=== PATIENT | female | born 1975 | race Caucasian/White ===

== ENCOUNTER 2017-11-15 13:41 | Emergency (ER) | payer OTHER ==
[2017-11-15 13:57] VITALS: BP 125/86
--- NOTE | 2017-11-15 13:58 | UC ---
UC General HPI - HPI Summary HPI Summary: pt is c/o a 2-3 day hx nasal congestion, sore throat and cough. - History of Current Complaint Hx Obtained From: Patient Hx Last Menstrual Period: 07/05/15 Onset/Duration: Gradual Onset Timing: Constant Aggravating: nothing Associated Signs & Symptoms: Negative: Fever, SOB <Shaye Smith - Last Filed: 11/15/17 13:52> <Iftikhar Croft - Last Filed: 11/15/17 14:15> - History of Current Complaint Chief Complaint: UCRespiratory Stated Complaint: SORE THROAT Time Seen by Provider: 11/15/17 13:51 - Allergy/Home Medications Allergies/Adverse Reactions: Allergies Allergy/AdvReac Type Severity Reaction Status Date / Time Sulfa (Sulfonamide Allergy Hives Verified 11/15/17 13:48 Antibiotics) Home Medications: Home Medications Methocarbamol TAB* [Robaxin 500 MG TAB*] 500 mg BEDTIME 11/15/17 [History Confirmed 11/15/17] SUMAtriptan TAB* [Imitrex TAB*] 1 tab TID PRN 11/15/17 [History Confirmed ] PMH/Surg Hx/FS Hx/Imm Hx Neurological History: Migraine - Surgical History Surgical History: Yes Surgery Procedure, Year, and Place: right thumb cyst excision 10/06/11. c- section x2. MIRENA--09/2014 - Family History Known Family History: Positive: Cardiac Disease, Hypertension - Social History Occupation: Employed Full-time Alcohol Use: Rare Substance Use Type: None Smoking Status (MU): Never Smoked Tobacco - Immunization History Vaccination Up to Date: Yes <Shaye Smith - Last Filed: 11/15/17 13:52> Review of Systems Constitutional: Negative Skin: Negative Eyes: Negative ENT: Sore Throat, Sinus Congestion Respiratory: Cough Cardiovascular: Negative Gastrointestinal: Negative Genitourinary: Negative Motor: Negative Neurovascular: Negative Musculoskeletal: Negative Neurological: Negative Psychological: Negative Is Patient Immunocompromised?: No All Other Systems Reviewed And Are Negative: Yes <Shaye Smith - Last Filed: 11/15/17 13:52> Physical Exam Triage Information Reviewed: Yes Appearance: Well-Appearing Vital Signs Reviewed: Yes Eyes: Positive: Conjunctiva Clear ENT: Positive: Pharyngeal erythema, Nasal congestion, TMs normal. Negative: Nasal drainage Neck: Positive: Supple, Nontender, No Lymphadenopathy Respiratory: Positive: Lungs clear, Normal breath sounds Cardiovascular: Positive: RRR, No Murmur Abdomen Description: Positive: Nontender, No Organomegaly, Soft Bowel Sounds: Positive: Present Musculoskeletal: Positive: ROM Intact, No Edema Neurological: Positive: Alert Psychological: Positive: Age Appropriate Behavior Skin Exam: Normal <Shaye Smith - Last Filed: 11/15/17 13:52> Vital Signs: Initial Vital Signs Temp 99.6 F 11/15/17 13:50 Pulse 81 11/15/17 13:50 Resp 16 11/15/17 13:50 BP 125/86 11/15/17 13:50 Pulse Ox 100 11/15/17 13:50 <Iftikhar Croft - Last Filed: 11/15/17 14:15> Diagnostics - Laboratory Diagnostic Studies Completed/Ordered: rapid strep=neg <Shaye Smith Last Filed: 11/15/17 13:52> Course/Dx - Course Course Of Treatment: rapid strep=neg. tx supportive - Differential Dx - Multi-Symptom Provider Diagnoses: URI. sore throat <Shaye Smith Last Filed: 11/15/17 13:52> Discharge - Sign-Out/Discharge Documenting (check all that apply): Discharge/Admit/Transfer - Billing Disposition and Condition Condition: STABLE Disposition: Home <Shaye Smith Filed: 11/15/17 13:52> - Billing Disposition and Condition Condition: STABLE Disposition: Home <Iftikhar Croft Rolando - Last Filed: 11/15/17 14:15> - Discharge Plan Condition: Stable Disposition: HOME Patient Education Materials: Pharyngitis (ED), Upper Respiratory Infection (ED) Referrals: Patrick Kahn MD [Primary Care Provider] - 7 Days Additional Instructions: Per institutional requirements, I have reviewed the chart, however, I was not consulted specifically or made aware of this patient by the above midlevel provider. I did not personally evaluate, interact with , or disposition this patient.
== END 2017-11-15 14:16 | disposition home or self-care (01) ==
LOC: UCCORT 13:41
DX: J06.9 Acute upper respiratory infection, unspecified (principal); J02.9 Acute pharyngitis, unspecified; Z88.2 Allergy status to sulfonamides
CPT/HCPCS: 87651; 99211; G0463

== ENCOUNTER 2018-07-21 13:03 | Emergency (ER) | payer OTHER ==
[2018-07-21 14:08] VITALS: BP 119/79
--- NOTE | 2018-07-21 14:32 | UC ---
Respiratory Complaint HPI - HPI Summary HPI Summary: 42 yo female with 2 day hx of myalgias/runny nose and sore throat no f/c + [facility] - History of Current Complaint Chief Complaint: UCRespiratory Stated Complaint: COUGH,ST,ACHES Time Seen by Provider: 07/21/18 14:23 Hx Obtained From: Patient Hx Last Menstrual Period: 07/05/15 Onset/Duration: Gradual Onset, Lasting Days Timing: Constant Severity Initially: Mild Severity Currently: Moderate Pain Intensity: 2 Pain Scale Used: 0-10 Numeric Character: Cough: Nonproductive Aggravating Factors: Nothing Associated Signs And Symptoms: Positive: Nasal Congestion, Sinus Discomfort - Allergies/Home Medications Allergies/Adverse Reactions: Allergies Allergy/AdvReac Type Severity Reaction Status Date / Time Sulfa (Sulfonamide Allergy Hives Verified 07/21/18 14:03 Antibiotics) PMH/Surg Hx/FS Hx/Imm Hx Previously Healthy: Yes Neurological History: Migraine - Surgical History Surgical History: Yes Surgery Procedure, Year, and Place: right thumb cyst excision 10/06/11. c- section x2. MIRENA--09/2014 - Family History Known Family History: Positive: Cardiac Disease, Hypertension - Social History Alcohol Use: None Substance Use Type: None Smoking Status (MU): Never Smoked Tobacco - Immunization History Vaccination Up to Date: Yes Review of Systems All Other Systems Reviewed And Are Negative: Yes Constitutional: Positive: Fatigue Skin: Positive: Negative Eyes: Positive: Negative ENT: Positive: Sore Throat, Nasal Discharge, Sinus Congestion, Sinus Pain/ Tenderness Respiratory: Positive: Cough Cardiovascular: Positive: Negative Gastrointestinal: Positive: Negative Genitourinary: Positive: Negative Motor: Positive: Negative Neurovascular: Positive: Negative Musculoskeletal: Positive: Myalgia Neurological: Positive: Headache Psychological: Positive: Negative Physical Exam Triage Information Reviewed: Yes Appearance: Well-Appearing, No Pain Distress, Well-Nourished Vital Signs: Initial Vital Signs Temp 97.9 F 07/21/18 14:04 Pulse 83 07/21/18 14:04 Resp 16 07/21/18 14:04 BP 119/79 07/21/18 14:04 Pulse Ox 100 07/21/18 14:04 Vital Signs Reviewed: Yes Eyes: Positive: Conjunctiva Clear ENT: Positive: Hearing grossly normal, Pharyngeal erythema, Nasal congestion, TMs normal, Uvula midline. Negative: Nasal drainage, Tonsillar swelling, Tonsillar exudate, Trismus, Muffled voice, Hoarse voice, Dental tenderness, Sinus tenderness Neck: Positive: Supple, Nontender, No Lymphadenopathy Respiratory: Positive: Lungs clear, Normal breath sounds, No respiratory distress, No accessory muscle use Cardiovascular: Positive: RRR, No Murmur Musculoskeletal: Positive: ROM Intact, No Edema Neurological: Positive: Alert Psychological Exam: Normal Respiratory Course/Dx - Course Course Of Treatment: strep (-), influenza (-) - Differential Dx/Diagnosis Provider Diagnosis: Viral URI with cough Discharge - Sign-Out/Discharge Documenting (check all that apply): Patient Departure All imaging exams completed and their final reports reviewed: No Studies - Discharge Plan Condition: Stable Disposition: HOME Patient Education Materials: Upper Respiratory Infection (ED) Referrals: Patrick Kahn MD [Primary Care Provider] - If Needed Additional Instructions: rest fluids tylenol or advil recheck in 3-5 days if not better - Billing Disposition and Condition Condition: STABLE Disposition: Home
[2018-07-21 14:52] LABS: Influenza A Molecular NEGATIVE (Negative); Influenza B Molecular NEGATIVE (Negative)
== END 2018-07-21 15:07 | disposition home or self-care (01) ==
LOC: UCCORT 13:03
DX: J06.9 Acute upper respiratory infection, unspecified (principal); R05 Cough; Z88.2 Allergy status to sulfonamides
CPT/HCPCS: 87651; 99211; G0463

== ENCOUNTER 2018-08-10 13:51 | Emergency (ER) | payer OTHER ==
[2018-08-10 14:32] VITALS: BP 101/73
--- NOTE | 2018-08-10 14:50 | UC ---
Ear Complaint HPI - HPI Summary HPI Summary: Pt Presents with c/o right ear pain that is intermittent and pt describes as a sharp radiating pain down her neck. Pt states she had a URI illness last week. - History of Current Complaint Chief Complaint: UCEar Stated Complaint: RT EAR PAIN Time Seen by Provider: 08/10/18 14:44 Hx Obtained From: Patient Hx Last Menstrual Period: 07/05/15 ?: No Onset/Duration: Gradual Onset, Lasting Days, Still Present Severity Initially: Mild Severity Currently: Mild Pain Intensity: 4 Associated Signs/Symptoms: Positive: URI Symptoms - Allergies/Home Medications Allergies/Adverse Reactions: Allergies Allergy/AdvReac Type Severity Reaction Status Date / Time Sulfa (Sulfonamide Allergy Hives Verified 08/10/18 14:27 Antibiotics) Home Medications: Home Medications Acetaminophen TAB* [Tylenol TAB*] 1,000 mg PO Q4H PRN 08/10/18 [History Confirmed 08/10/18] cloNIDine TAB* [Catapres 0.1 MG TAB*] 0.1 mg PO DAILY 08/10/18 [History Confirmed 08/10/18] PMH/Surg Hx/FS Hx/Imm Hx Previously Healthy: Yes - Surgical History Surgical History: Yes Surgery Procedure, Year, and Place: right thumb cyst excision 10/06/11. c- section x2. MIRENA--09/2014 - Family History Known Family History: Positive: Cardiac Disease, Hypertension - Social History Occupation: Employed Full-time Lives: With Family Alcohol Use: None Substance Use Type: None Smoking Status (MU): Never Smoked Tobacco Have You Smoked in the Last Year: No - Immunization History Vaccination Up to Date: Yes Review of Systems All Other Systems Reviewed And Are Negative: Yes Constitutional: Positive: Negative Skin: Positive: Negative Eyes: Positive: Negative ENT: Positive: Ear Ache - right ear Respiratory: Positive: Negative Cardiovascular: Positive: Negative Gastrointestinal: Positive: Negative Genitourinary: Positive: Negative Motor: Positive: Negative Neurovascular: Positive: Negative Musculoskeletal: Positive: Negative Neurological: Positive: Negative Psychological: Positive: Negative Is Patient Immunocompromised?: No Physical Exam Triage Information Reviewed: Yes Appearance: Well-Appearing Vital Signs: Initial Vital Signs Temp 98.4 F 08/10/18 14:28 Pulse 68 08/10/18 14:28 Resp 14 08/10/18 14:28 BP 101/73 08/10/18 14:28 Pulse Ox 100 08/10/18 14:28 Vital Signs Reviewed: Yes Eye Exam: Normal ENT: Positive: TM bulging - bilateral Dental Exam: Normal Neck exam: Normal Respiratory Exam: Normal Cardiovascular Exam: Normal Musculoskeletal Exam: Normal Neurological Exam: Normal Psychological Exam: Normal Skin Exam: Normal Ear Complaint Course/Dx - Differential Dx/Diagnosis Differential Diagnosis/HQI/PQRI: Otitis Media, URI Provider Diagnosis: Acute serous otitis media, right ear Discharge - Sign-Out/Discharge Documenting (check all that apply): Patient Departure All imaging exams completed and their final reports reviewed: No Studies - Discharge Plan Condition: Stable Disposition: HOME Prescriptions: Fexofenadine/Pseudoephedrine [Saundra-D 24 Hour Tablet] 1 each PO DAILY #10 tab.er.24h Ibuprofen TAB* [Motrin TAB* 800 MG] 800 mg PO Q8H PRN #15 tab PRN Reason: Pain Patient Education Materials: Serous Otitis Media (ED) Referrals: Patrick Kahn MD [Primary Care Provider] - If Needed - Billing Disposition and Condition Condition: STABLE Disposition: Home - Attestation Statements Provider Attestation: Per institutional requirements, I have reviewed the chart, however, I was not consulted specifically or made aware of this patient by the midlevel provider. I did not personally evaluate, interact with , or disposition this patient.
== END 2018-08-10 14:57 | disposition home or self-care (01) ==
LOC: UCCORT 13:51
DX: H65.01 Acute serous otitis media, right ear (principal); Z88.2 Allergy status to sulfonamides
CPT/HCPCS: 99212; G0463

== ENCOUNTER 2018-09-14 09:46 | Emergency (ER) | payer OTHER ==
[2018-09-14 11:01] VITALS: BP 116/76
--- NOTE | 2018-09-14 11:10 | UC ---
Eye Complaint HPI - HPI Summary HPI Summary: Pt presents with c/o left eye redness, yellow drainage drainage and tenderness X 1 day. - History of Current Complaint Chief Complaint: UCEye Stated Complaint: EYE COMPLAINT Time Seen by Provider: 09/14/18 10:48 Hx Obtained From: Patient Hx Last Menstrual Period: n/a ?: No Onset/Duration: Sudden Onset, Lasting Days, Still Present Timing: Constant Severity Initially: Mild Severity Currently: Mild Pain Intensity: 1 Character: Dull, Foreign Body Sensation Aggravating Factor(s): Nothing Alleviating Factor(s): Nothing Associated Signs And Symptoms: Positive: Drainage (Purulent) - Risk Factors Penetrating Injury Risk Factor: Negative Globe Rupture Risk Factors: Negative Acute Glaucoma Risk Factors: Negative Optic Artery Occlusion Risk Factors: Negative - Allergies/Home Medications Allergies/Adverse Reactions: Allergies Allergy/AdvReac Type Severity Reaction Status Date / Time Sulfa (Sulfonamide Allergy Hives Verified 09/14/18 10:50 Antibiotics) seasonal Allergy Eyes Uncoded 09/14/18 10:50 Itchy/Swollen/Red/Watery Home Medications: Home Medications Loratadine 10 mg PO DAILY 09/14/18 [History Confirmed 09/14/18] PMH/Surg Hx/FS Hx/Imm Hx Previously Healthy: Yes - Surgical History Surgical History: Yes Surgery Procedure, Year, and Place: right thumb cyst excision 10/06/11. c- section x2. MIRENA--09/2014 - Family History Known Family History: Positive: Cardiac Disease, Hypertension - Social History Occupation: Employed Full-time Lives: With Family Alcohol Use: None Substance Use Type: None Smoking Status (MU): Never Smoked Tobacco Have You Smoked in the Last Year: No - Immunization History Vaccination Up to Date: Yes Review of Systems All Other Systems Reviewed And Are Negative: Yes Constitutional: Positive: Negative Skin: Positive: Negative Eyes: Positive: Drainage, Eye Redness ENT: Positive: Negative Respiratory: Positive: Negative Cardiovascular: Positive: Negative Gastrointestinal: Positive: Negative Genitourinary: Positive: Negative Motor: Positive: Negative Neurovascular: Positive: Negative Musculoskeletal: Positive: Negative Neurological: Positive: Negative Psychological: Positive: Negative Is Patient Immunocompromised?: No Physical Exam Triage Information Reviewed: Yes Appearance: Well-Appearing Vital Signs: Initial Vital Signs Temp 97.9 F 09/14/18 10:53 Pulse 69 09/14/18 10:53 Resp 18 09/14/18 10:53 BP 116/76 09/14/18 10:53 Pulse Ox 100 09/14/18 10:53 Vital Signs Reviewed: Yes Eyes: Positive: Conjunctiva Inflamed, Discharge ENT Exam: Normal Dental Exam: Normal Neck exam: Normal Respiratory Exam: Normal Respiratory: Positive: No respiratory distress Musculoskeletal Exam: Normal Neurological Exam: Normal Psychological Exam: Normal Skin Exam: Normal Eye Complaint Course/Dx - Differential Dx/Diagnosis Differential Diagnosis/HQI/PQRI: Conjunctivitis, Corneal Abrasion Provider Diagnosis: Conjunctivitis, left eye Discharge - Sign-Out/Discharge Documenting (check all that apply): Patient Departure All imaging exams completed and their final reports reviewed: No Studies - Discharge Plan Condition: Stable Disposition: HOME Prescriptions: Ofloxacin 0.3% (Eye Drop) [Ocuflox OPTH 0.3% (Eye Drop)] 2 drop BOTH EYES Q6H 7 Days #1 btl Patient Education Materials: Conjunctivitis (ED) Referrals: Patrick Kahn MD [Primary Care Provider] - If Needed - Billing Disposition and Condition Condition: STABLE Disposition: Home - Attestation Statements Provider Attestation: I was available for consult. This patient was seen by the JESSICA. The patient was not presented to, seen by, or examined by me. -Karla
== END 2018-09-14 11:27 | disposition home or self-care (01) ==
LOC: UCCORT 09:46
DX: H10.9 Unspecified conjunctivitis (principal); Z88.2 Allergy status to sulfonamides; Z91.09 Other allergy status, other than to drugs and biological substances
CPT/HCPCS: 99212; G0463

== ENCOUNTER 2018-09-20 14:26 | Emergency (ER) | payer OTHER ==
[2018-09-20 14:55] VITALS: BP 116/88
--- NOTE | 2018-09-20 15:05 | UC ---
Neck Pain HPI - HPI Summary HPI Summary: pain along the back of her neck since this past Wednesday with a popping/ cracking noise with movement. no hx injury or over used. no numb/weak or tingling to arms. no CP or sob. hx cervical spinal stenosis. on mm relaxer and took 400mg Motrin this am with no relief. it is worsening her migraines since onset. - History of Current Complaint Stated Complaint: NECK PAIN Time Seen by Provider: 09/20/18 14:50 Hx Obtained From: Patient Hx Last Menstrual Period: mirena Pain Intensity: 8 Aggravating Factors: Movement Alleviating Factors: Other: - standing Associated Signs & Symptoms: Negative: Weakness, Paresthesia - Risk Factors Meningitis Risk Factors: Negative - Allergies/Home Medications Allergies/Adverse Reactions: Allergies Allergy/AdvReac Type Severity Reaction Status Date / Time Sulfa (Sulfonamide Allergy Hives Verified 09/20/18 14:49 Antibiotics) seasonal Allergy Eyes Uncoded 09/20/18 14:49 Itchy/Swollen/Red/Watery Home Medications: Home Medications Ibuprofen TAB* [Motrin TAB* 400 MG] 400 mg PO Q6H PRN 09/20/18 [History Confirmed 09/20/18] ZOLMitriptan [Zolmitriptan Odt] 2.5 mg PO Q4H PRN 09/20/18 [History Confirmed ] PMH/Surg Hx/FS Hx/Imm Hx - Additional Past Medical History Additional PMH: OA, spinal stenosis Neurological History: Migraine - Surgical History Surgical History: Yes Surgery Procedure, Year, and Place: right thumb cyst excision 10/06/11. c- section x2. ARIELLA--09/2014 - Family History Known Family History: Positive: Cardiac Disease, Hypertension - Social History Occupation: Employed Full-time Alcohol Use: None Substance Use Type: None Smoking Status (MU): Never Smoked Tobacco Have You Smoked in the Last Year: No - Immunization History Vaccination Up to Date: Yes Review of Systems All Other Systems Reviewed And Are Negative: Yes Constitutional: Negative: Fever Respiratory: Negative: Shortness Of Breath, Cough Cardiovascular: Negative: Palpitations, Chest Pain Musculoskeletal: Negative: Decreased ROM Neurological: Positive: Headache - migraines. Negative: Weakness, Paresthesia, Numbness Physical Exam Triage Information Reviewed: Yes Appearance: Well-Appearing Vital Signs: Initial Vital Signs Temp 98.9 F 09/20/18 14:51 Pulse 70 09/20/18 14:51 Resp 15 09/20/18 14:51 BP 116/88 09/20/18 14:51 Pulse Ox 100 09/20/18 14:51 Vital Signs Reviewed: Yes Eyes: Positive: Conjunctiva Clear ENT: Positive: Normal ENT inspection Neck: Positive: Supple, No Lymphadenopathy, Other: - c-spine: no deformity, non tender but active rom causes the posterior neck pain and a pop is noted. ROM is intact. Respiratory: Positive: Lungs clear, Normal breath sounds, No respiratory distress Cardiovascular: Positive: RRR, No Murmur Abdomen Description: Positive: Nontender Musculoskeletal: Positive: Other: - Thoracic and lumbar spine: non tender and rom is intact. 5/5 strength, 2+ reflexes and sensation intact x4. Neurological: Positive: Alert Psychological: Positive: Age Appropriate Behavior Skin Exam: Normal Skin: Negative: Rashes Diagnostics - Radiology No standard instances Radiology Interpretation Completed By: Radiologist - IMPRESSION: MILD TO MODERATE DEGENERATIVE DISC DISEASE AT THE C5-C6 AND C6-C7 LEVELS. Neck Pain Course/Dx - Differential Dx/Diagnosis Differential Dx/HQI/PQRI: Other - no concern for infection Provider Diagnosis: Neck pain Discharge - Sign-Out/Discharge Documenting (check all that apply): Patient Departure All imaging exams completed and their final reports reviewed: Yes - Discharge Plan Condition: Stable Disposition: HOME Prescriptions: Naproxen [Naprosyn 500 mg tab] 500 mg PO BID 5 Days #10 tablet Patient Education Materials: Neck Pain (ED) Referrals: Patrick Kahn MD [Primary Care Provider] - 6 Days Additional Instructions: CONTINUE THE MUSCLE RELAXERS - Billing Disposition and Condition Condition: STABLE Disposition: Home
[2018-09-20] MEDS ORDERED: Ketorolac INJ* 60 MG/2 ML VIAL IM ONE (15:09)
== END 2018-09-20 16:42 | disposition home or self-care (01) ==
LOC: UCCORT 14:26
DX: M50.323 Other cervical disc degeneration at C6-C7 level (principal); G43.909 Migraine, unspecified, not intractable, without status migrainosus; M19.90 Unspecified osteoarthritis, unspecified site; M48.00 Spinal stenosis, site unspecified; Z88.2 Allergy status to sulfonamides
CPT/HCPCS: 72050; 96372; 99212; G0463; J1885

== ENCOUNTER 2019-02-01 10:20 | Emergency (ER) | payer OTHER ==
[2019-02-01 11:35] VITALS: BP 127/83
--- NOTE | 2019-02-01 12:06 | UC ---
UC General HPI - HPI Summary HPI Summary: per triage, per triage, Sinus pain and pressure, post nasal drip, coughing, sore throat and bilateral ear pain since Wednesday. Worsening. [ End ]. pt states she can't get anything in or out of her nose. hx sinus infection and this feels similar. - History of Current Complaint Chief Complaint: UCGeneralIllness Stated Complaint: SINUSES,THROAT Time Seen by Provider: 02/01/19 12:00 Hx Obtained From: Patient Hx Last Menstrual Period: mirena Onset/Duration: Gradual Onset Timing: Constant Pain Intensity: 3 Associated Signs & Symptoms: Positive: Headache. Negative: Fever - Allergy/Home Medications Allergies/Adverse Reactions: Allergies Allergy/AdvReac Type Severity Reaction Status Date / Time Sulfa (Sulfonamide Allergy Hives Verified 02/01/19 11:32 Antibiotics) seasonal Allergy Eyes Uncoded 02/01/19 11:32 Itchy/Swollen/Red/Watery PMH/Surg Hx/FS Hx/Imm Hx - Additional Past Medical History Additional PMH: allergies, spinal stenosis Neurological History: Migraine - Surgical History Surgical History: Yes Surgery Procedure, Year, and Place: right thumb cyst excision 10/06/11. c- section x2. MIRENA--09/2014 - Family History Known Family History: Positive: Cardiac Disease, Hypertension - Social History Occupation: Employed Full-time Alcohol Use: Occasionally Substance Use Type: None Smoking Status (MU): Never Smoked Tobacco Have You Smoked in the Last Year: No - Immunization History Vaccination Up to Date: Yes Review of Systems All Other Systems Reviewed And Are Negative: No Constitutional: Negative: Fever Skin: Negative: Rash Eyes: Negative: Drainage, Eye Redness ENT: Positive: Sore Throat, Ear Ache, Sinus Congestion, Sinus Pain/Tenderness Respiratory: Positive: Cough. Negative: Shortness Of Breath Physical Exam Triage Information Reviewed: Yes Appearance: Well-Appearing Vital Signs: Initial Vital Signs Temp 98.7 F 02/01/19 11:30 Pulse 82 02/01/19 11:30 Resp 15 02/01/19 11:30 BP 127/83 02/01/19 11:30 Pulse Ox 100 02/01/19 11:30 Vital Signs Reviewed: Yes Eyes: Positive: Conjunctiva Clear ENT: Positive: Pharynx normal, Nasal congestion, TMs normal, Sinus tenderness, Other - Nose is very red and memebranes are engorged.. Negative: Nasal drainage Neck: Positive: Supple, Nontender, No Lymphadenopathy Respiratory: Positive: Lungs clear, Normal breath sounds, No respiratory distress Cardiovascular: Positive: RRR, No Murmur Neurological: Positive: Alert Psychological: Positive: Age Appropriate Behavior Skin Exam: Normal Course/Dx - Differential Dx - Multi-Symptom Differential Diagnoses: Other - pt to trial a decongestant. if not improving she is to add the augmentin. she will add the augmentin sooner if worsening. - Diagnoses Provider Diagnosis: Sinusitis Discharge ED - Sign-Out/Discharge Documenting (check all that apply): Patient Departure All imaging exams completed and their final reports reviewed: No Studies - Discharge Plan Condition: Stable Disposition: HOME Prescriptions: Amoxicillin/Clavulanate TAB* [Augmentin TAB 875*] 875 mg PO BID 10 Days #20 tab Patient Education Materials: Sinusitis (ED) Referrals: Patrick Strong MD [Primary Care Provider] - Additional Instructions: FOLLOW UP WITH DR STRONG IF NOT BETTER IN 7-10 DAYS OR SOONER IF WORSE. TAKE A DECONGESTANT DAILY PER LABEL. IF NOT IMPROVING WITHIN THE NEXT 3 DAYS, START THE AUGMENTIN. START THE AUGMENTIN SOONER IF WORSE. - Billing Disposition and Condition Condition: STABLE Disposition: Home
== END 2019-02-01 12:13 | disposition home or self-care (01) ==
LOC: UCCORT 10:20
DX: J32.9 Chronic sinusitis, unspecified (principal); H92.03 Otalgia, bilateral; Z88.2 Allergy status to sulfonamides
CPT/HCPCS: 99212; G0463

== ENCOUNTER 2019-02-23 14:28 | Emergency (ER) | payer OTHER ==
[2019-02-23 14:46] VITALS: BP 133/78
--- NOTE | 2019-02-23 15:03 | UC ---
Lower Extremity/Ankle HPI - HPI Summary HPI Summary: 43 yo female hit mid right cao on a dresser drawer about one week ago still causing moderate to severe pain Pain worse at rest no change with NSAIDS or elevation - History of Current Complaint Chief Complaint: UCLowerExtremity Stated Complaint: R LEG PAIN/INJ Time Seen by Provider: 02/23/19 14:43 Hx Obtained From: Patient Hx Last Menstrual Period: mirena Onset/Duration: Sudden Onset, Lasting Days Severity Currently: Moderate Pain Intensity: 8 Pain Scale Used: 0-10 Numeric Aggravating Factor(s): Standing, Ambulation Alleviating Factor(s): Rest Able to Bear Weight: Yes Legs: 1 - ecchymosis 2 - ecchymosis - Allergies/Home Medications Allergies/Adverse Reactions: Allergies Allergy/AdvReac Type Severity Reaction Status Date / Time Sulfa (Sulfonamide Allergy Hives Verified 02/23/19 14:43 Antibiotics) seasonal Allergy Eyes Uncoded 02/23/19 14:43 Itchy/Swollen/Red/Watery PMH/Surg Hx/FS Hx/Imm Hx Previously Healthy: Yes - Surgical History Surgical History: Yes Surgery Procedure, Year, and Place: right thumb cyst excision 10/06/11. c- section x2. ARIELLA--09/2014 - Family History Known Family History: Positive: Cardiac Disease, Hypertension - Social History Alcohol Use: Occasionally Substance Use Type: None Smoking Status (MU): Never Smoked Tobacco Have You Smoked in the Last Year: No - Immunization History Vaccination Up to Date: Yes Review of Systems All Other Systems Reviewed And Are Negative: Yes Constitutional: Positive: Negative Skin: Positive: Bruising Eyes: Positive: Negative ENT: Positive: Negative Respiratory: Positive: Negative Cardiovascular: Positive: Negative Gastrointestinal: Positive: Negative Genitourinary: Positive: Negative Motor: Positive: Negative Neurovascular: Positive: Negative Musculoskeletal: Positive: Other: - right cao hematoma Neurological: Positive: Negative Psychological: Positive: Negative Physical Exam Triage Information Reviewed: Yes Appearance: Well-Appearing, No Pain Distress, Well-Nourished Vital Signs: Initial Vital Signs Temp 98.0 F 02/23/19 14:44 Pulse 81 02/23/19 14:44 Resp 16 02/23/19 14:44 BP 133/78 02/23/19 14:44 Pulse Ox 100 02/23/19 14:44 Vital Signs Reviewed: Yes Eyes: Positive: Conjunctiva Clear ENT: Positive: Hearing grossly normal. Negative: Nasal congestion, Nasal drainage, Trismus, Muffled voice, Hoarse voice Neck: Positive: Supple, Nontender Respiratory: Positive: Lungs clear, Normal breath sounds, No respiratory distress, No accessory muscle use Cardiovascular: Positive: RRR, No Murmur Musculoskeletal: Positive: ROM Intact Neurological: Positive: Alert, Other: - see image Psychological Exam: Normal Skin Exam: Normal - Additional Comments distal n/v intact able to dorsi and plantar flex right foot normally normal gait no muscle firmness no signs of vaso motor issues no evidence of infection pain out of proportion to injury Procedures - Sedation Patient Received Moderate/Deep Sedation with Procedure: No Diagnostics - Radiology No standard instances Radiology Interpretation Completed By: Radiologist Summary of Radiographic Findings: right tib/fib : no fx Lower Extremity Course/Dx - Differential Dx/Diagnosis Provider Diagnosis: Injury of right cao Discharge ED - Sign-Out/Discharge Documenting (check all that apply): Patient Departure All imaging exams completed and their final reports reviewed: Yes - Discharge Plan Condition: Stable Disposition: HOME Prescriptions: Meloxicam [Mobic] 15 mg PO DAILY PRN #10 tablet PRN Reason: Pain - Severe Patient Education Materials: Hematoma (ED) Forms: *Work Release Referrals: Patrick Kahn MD [Primary Care Provider] - Gareth Maynard MD [Medical Doctor] - As Soon As Possible Additional Instructions: elevate ice tylenol I suggest orthopedic follow up - Billing Disposition and Condition Condition: STABLE Disposition: Home
== END 2019-02-23 15:39 | disposition home or self-care (01) ==
LOC: UCCORT 14:28
DX: S89.91XA Unspecified injury of right lower leg, initial encounter (principal); Z88.2 Allergy status to sulfonamides; Z91.09 Other allergy status, other than to drugs and biological substances; W22.8XXA Striking against or struck by other objects, initial encounter; Y92.9 Unspecified place or not applicable
CPT/HCPCS: 99212; G0463

== ENCOUNTER 2019-04-27 16:57 | Emergency (ER) | payer OTHER ==
--- OUTSIDE RECORDS SUMMARY | 2019-04-27 17:19 | XMS REPORT | Continuity of Care Document ---
:1975 External Reference #:[id number] Author Name Gareth Maynard MD (transmitted by agent of provider Samuel Quigley) Address [facility] [place] [address] Care Team Providers Name Role Phone [facility] - Care Team Information [facility] Patrick Kahn MD - Emergency Care Team Information [facility] [phone] Medicine Problems Active Problems Provider Date Migraine Monique Henderson M.D. Onset: 01/22/2015 Social History Type Date Description Comments Sex Unknown Tobacco Use Start: Unknown Never Smoked Cigarettes Smoking Status Reviewed: 03/10/19 Never Smoked Cigarettes ETOH Use Rarely consumes alcohol Tobacco Use Start: Unknown Patient has never smoked Recreational Drug Use Denies Drug Use Exercise Type/Frequency Exercises sporadically Allergies, Adverse Reactions, Alerts Active Allergies Reaction Severity Comments Date Sulfa Antibiotics 07/13/2012 Metoclopramide [facility] as [facility] 04/30/2017 Medications Active Medications SIG Qnty Indications Ordering Provider Date Compazine 1 by mouth every Unknown 10mg Tablets 6 hours as needed nausea Methocarbamol 1 by mouth at hs Unknown 500mg Tablets Melatonin take 2 by mouth Unknown 3mg Capsules each night Topiramate take 1/2 by mouth Unknown 100mg Tablets at bedtime Multivitamin Adults take 1 by mouth Unknown each day Tablets Zolmitriptan 1 by mouth twice 9tabs Unknown 5mg Tablets a day as needed migraine max 2 days/wk Fluoxetine HCL 1 by mouth every Unknown 20mg day Capsules Vitamin B12 TR 1 by mouth every Unknown 1000mcg day Tablets ER Immunizations Description No Information Available Vital Signs Date Vital Result Comment 03/10/2019 11:04am Height 66 inches 5'6" Weight 140.00 lb Heart Rate 77 /min BP Systolic Sitting 116 mmHg BP Diastolic Sitting 67 mmHg Respiratory Rate 16 /min Pain Level 0 O2 % BldC Oximetry 91 % BMI (Body Mass Index) 22.6 kg/m2 04/30/2017 1:46pm Height 66 inches 5'6" Weight 140.00 lb Heart Rate 76 /min BP Systolic Sitting 104 mmHg BP Diastolic Sitting 76 mmHg Respiratory Rate 16 /min BMI (Body Mass Index) 22.6 kg/m2 Results Description No Information Available Procedures Description No Information Available Medical Devices Description No Information Available Encounters Type Date Location Provider Dx Diagnosis Office Visit 02/24/2019 [facility] Gareth Maynard, S80.11xA Contusion of 11:30a at [place] right lower leg, initial encounter Assessments Date Code Description Provider 03/10/2019 S80.11xD Contusion of right lower leg, subsequent Gareth Maynard MD encounter 02/24/2019 S80.11xA Contusion of right lower leg, initial Gareth Maynard MD encounter Plan of Treatment 03/10/2019 - Gareth Maynard [id number] Contusion of right lower leg, subsequent encounterComments:home exercises sheetsFollow up:Follow up: As needed Functional Status Description No Information Available Mental Status Description No Information Available Referrals Description No Information Available
[2019-04-27 17:30] VITALS: BP 114/73
--- NOTE | 2019-04-27 18:13 | UC ---
Lower Extremity/Ankle HPI - HPI Summary HPI Summary: Patient is a 43-year-old female presenting with left ankle pain times one hour after she states she missed a step going down the stairs at home. States her foot rolled inward. States she is able to put some weight on it but is very painful. Denies numbness and tingling. Denies bruising. Notes some swelling of lateral ankle. Denies foot pain. Denies taking anything for pain. - History of Current Complaint Chief Complaint: UCLowerExtremity Stated Complaint: LT ANKLE INJURY Hx Obtained From: Patient Hx Last Menstrual Period: mirena iud. does not have reg periods. Onset/Duration: Sudden Onset Severity Currently: Moderate Pain Intensity: 6 Pain Scale Used: 0-10 Numeric - Allergies/Home Medications Allergies/Adverse Reactions: Allergies Allergy/AdvReac Type Severity Reaction Status Date / Time Sulfa (Sulfonamide Allergy Hives Verified 04/27/19 17:21 Antibiotics) seasonal Allergy Eyes Uncoded 04/27/19 17:21 Itchy/Swollen/Red/Watery Home Medications: Home Medications Levonorgestrel (Iud) [Mirena IUD] 20 mcg IU 04/27/19 [History] Vitamin B Complex CAP* [B Complex CAP*] 1 cap PO DAILY 04/27/19 [History Confirmed 04/27/19] PMH/Surg Hx/FS Hx/Imm Hx Previously Healthy: Yes - Surgical History Surgical History: Yes Surgery Procedure, Year, and Place: right thumb cyst excision 10/06/11. c- section x2. MIRENA--09/2014 - Family History Known Family History: Positive: Cardiac Disease, Hypertension, Non-Contributory - Social History Occupation: Employed Full-time Lives: With Family Alcohol Use: Rare Substance Use Type: None Smoking Status (MU): Never Smoked Tobacco Have You Smoked in the Last Year: No - Immunization History Vaccination Up to Date: Yes Review of Systems All Other Systems Reviewed And Are Negative: Yes Constitutional: Positive: Negative Skin: Negative: Bruising Respiratory: Positive: Negative Cardiovascular: Positive: Negative Neurovascular: Positive: Negative. Negative: Decreased Sensation Musculoskeletal: Positive: Arthralgia - Left ankle, Edema - Left lateral ankle. Negative: Decreased ROM Neurological: Negative: Paresthesia, Numbness Physical Exam Triage Information Reviewed: Yes Appearance: Well-Appearing, No Pain Distress, Well-Nourished Vital Signs: Initial Vital Signs Temp 99.2 F 04/27/19 17:23 Pulse 76 04/27/19 17:23 Resp 16 04/27/19 17:23 BP 114/73 04/27/19 17:23 Pulse Ox 98 04/27/19 17:23 Vital Signs Reviewed: Yes Eyes: Positive: Conjunctiva Clear ENT: Positive: Hearing grossly normal Neck: Positive: Supple Respiratory: Positive: No respiratory distress Cardiovascular: Positive: Pulses Normal - Strong pedal pulses bilaterally, Brisk Capillary Refill - <2 sec Musculoskeletal: Positive: Strength Intact, ROM Intact, No Edema, Other: - Pain with inversion of left foot. Tenderness to palpation of left lateral ankle. Observed patient bear weight on left ankle and foot without significant pain distress. Neurological Exam: Other - Sensation grossly intact Neurological: Positive: Alert Psychological: Positive: Age Appropriate Behavior Skin Exam: Normal - no erythema or ecchymosis Diagnostics - Radiology L ankle Radiology Interpretation Completed By: Radiologist Summary of Radiographic Findings: REPORT AND IMPRESSION: #. Chronic appearing small wafer morphology bone fragment along the dorsal margin of the navicula reference the lateral view. New finding compared with the 2014 exam. #. No evidence for acute fracture about the ankle. #. Normal articular alignment. Preserved joint spaces. #. Unremarkable soft tissue contours. Lower Extremity Course/Dx - Course Course Of Treatment: Radiograph findings discussed with radiologist Dr. Paz who explained that bone fragment is suggestive of a chronic finding and would not consider acute finding unless point tenderness. Patient without point tenderness in that location and diagnosed with sprained ankle. Instructed to continue with RICE and use of arianna wrap and ankle splint until pain resolves. Instructed to follow up with ortho if pain persists. Patient voiced understanding and agreed with treatment plan. - Differential Dx/Diagnosis Provider Diagnosis: Left ankle sprain Discharge ED - Sign-Out/Discharge Documenting (check all that apply): Patient Departure All imaging exams completed and their final reports reviewed: Yes - Discharge Plan Condition: Stable Disposition: HOME Patient Education Materials: Ankle Sprain (ED) Referrals: Patrick Kahn MD [Primary Care Provider] - If Needed [facility] [Outside] - If Needed Additional Instructions: As discussed, the xrays of the ankle did not show any fractures. Rest, ice, elevate, and use the ankle splint to help relieve pain. You may also use over the counter pain medications as directed for pain relief. If pain does not resolve, follow up with your PCP or orthopedics as listed below. - Billing Disposition and Condition Condition: STABLE Disposition: Home - Attestation Statements Provider Attestation: I was available for consult. This patient was seen by the JESSICA. The patient was not presented to, seen by, or examined by me. -Karla
== END 2019-04-27 18:48 | disposition home or self-care (01) ==
LOC: UCCORT 16:57
DX: S93.402A Sprain of unspecified ligament of left ankle, initial encounter (principal); Z88.2 Allergy status to sulfonamides; Z91.09 Other allergy status, other than to drugs and biological substances; X50.3XXA Overexertion from repetitive movements, initial encounter; Y92.009 Unspecified place in unspecified non-institutional (private) residence as the place of occurrence of the external cause
CPT/HCPCS: 99213; G0463

== ENCOUNTER 2019-06-01 11:59 | Emergency (ER) | payer OTHER ==
[2019-06-01 12:29] VITALS: BP 117/81
--- NOTE | 2019-06-01 12:37 | UC ---
FLU HPI - HPI Summary HPI Summary: Patient with 43-year-old female with a history of migraines. 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 Patient states yesterday she suddenly started to feel very sick. Patient states she's been nauseous but no vomiting. Patient states she's been hot and cold flashes with tactile temperatures. Patient reports she has a history of migraines and she's had an ongoing headache. Patient has taken her baseline migraine medication with little improvement. Patient concerned she may have the flu. No sick contacts at home. Patient didn't get the flu shot pressure. Patient states she does have some nasal congestion postnasal drip. Patient has not taken any [id number] medications other than Motrin and Tylenol. Patient's medications as entered in the EMR by triage are reviewed this visit. - History of Current Complaint Chief Complaint: UCGeneralIllness Stated Complaint: FLU LIKE SYMP Time Seen by Provider: 06/01/19 12:37 Hx Obtained From: Patient Hx Last Menstrual Period: mirena ?: No Onset/Duration: Sudden Onset Severity Currently: Moderate Severity Initially: Moderate Pain Intensity: 6 - Allergy/Home Medications Allergies/Adverse Reactions: Allergies Allergy/AdvReac Type Severity Reaction Status Date / Time Sulfa (Sulfonamide Allergy Hives Verified 06/01/19 12:26 Antibiotics) seasonal Allergy Eyes Uncoded 06/01/19 12:26 Itchy/Swollen/Red/Watery PMH/Surg Hx/FS Hx/Imm Hx Previously Healthy: Yes - Surgical History Surgical History: Yes Surgery Procedure, Year, and Place: right thumb cyst excision 10/06/11. c- section x2. MIRENA--09/2014 - Family History Known Family History: Positive: Cardiac Disease, Hypertension, Non-Contributory - Social History Occupation: Employed Full-time Lives: With Family Alcohol Use: Rare Substance Use Type: None Smoking Status (MU): Never Smoked Tobacco Have You Smoked in the Last Year: No - Immunization History Vaccination Up to Date: Yes Review of Systems All Other Systems Reviewed And Are Negative: Yes Constitutional: Positive: Fever - tactile, hot flashes Eyes: Positive: Negative ENT: Positive: Sore Throat, Ear Ache, Nasal Discharge, Sinus Congestion, Sinus Pain/Tenderness Respiratory: Positive: Cough Cardiovascular: Positive: Negative Musculoskeletal: Positive: Myalgia Physical Exam - Summary Physical Exam Summary: Vital Signs Reviewed: Yes A+Ox3, tired appearing,congested Eyes: Conjunctiva Clear, BRE. EOM intact and full ENT: Hearing grossly normal TM x 2 visualized,scant fluid right ear, turbiantes inflammed and boggy, mmoist, uvula midline, no exudate, no erythema Neck: Positive: Supple Respiratory: Positive: No respiratory distress, No accessory muscle use + CTA throughout no w/r, mild intermittent cough Cardiovascular: RRR nl s1, s2 no m/r CBT <2 sec abd soft + BS nt/nd no guarding, no distension Musculoskeletal Exam: BUSTAMANTE x 4 without difficulty Strength Intact, ROM Intact Neurological: Positive: Alert, + sensation throughout Psychological: Positive: Normal Response To examiner Skin: Positive: no rash, no ecchymosis Triage Information Reviewed: Yes Vital Signs: Initial Vital Signs Temp 98.3 F 06/01/19 12:24 Pulse 101 06/01/19 12:24 Resp 15 06/01/19 12:24 BP 117/81 06/01/19 12:24 Pulse Ox 98 06/01/19 12:24 Re-Evaluation - Re-Evaluation First Eval Comment: Patient states she felt better after Zofran. Patient I am ordered. We 'll discharge home with Tamiflu as well as Zofran. We'll also send home with note for work tomorrow. Return precautions discussed. Patient comfortable in agreement with plan Flu Course/Dx - Course Course Of Treatment: Patient presents to urgent care with flulike symptoms including sudden onset of fevers and body aches chills nausea. Patient states she's been taking Motrin and Tylenol as well as her migraine medication with little improvement. On exam vital signs are stable. Patient does appear tired and congested. Patient' s without any focal exam finding of concern. Patient influenza was negative. We'll give Zofran and reassessed. Discussed with patient supportive care. We' ll likely start patient on Tamiflu she has had multiple exposures and onset of symptoms. Patient and family plan. We'll reassess following Zofran - Differential Dx/Diagnosis Provider Diagnosis: Influenza-like illness, Nausea Discharge ED - Sign-Out/Discharge Documenting (check all that apply): Patient Departure All imaging exams completed and their final reports reviewed: No Studies - Discharge Plan Condition: Stable Disposition: HOME Prescriptions: Ondansetron ODT TAB* [Zofran 4 MG Odt TAB*] 4 mg PO Q6HR #10 tab.odt Oseltamivir CAP* [Tamiflu CAP*] 75 mg PO BID #10 cap Patient Education Materials: Viral Syndrome (ED) Forms: *Work Release Referrals: Patrick Kahn MD [Primary Care Provider] - Additional Instructions: - Stay well hydrated. Drink plenty of non-alcoholic, non-caffinated beverages. - Alternate ibuprofen (Advil, Motrin) 600mg and Tylenol every 3 hours for pain or fever. Take with food. Do NOT take for more than 4-5 days. - These infections are spread by secretions - do NOT share eating or drinking utensils - clean items you share with other people such as cell phones, computer mouse, TV remote, computer tablets,etc. Once you start to feel better, change your toothbrush and your pillowcase. - Take Tamiflu twice daily as prescribed - get plenty of restful sleep - humidify the air in the room where you sleep - boil water, run a hot steam shower, vaporizer, cups of water by heat register - okay to take over the counter decongestant and cough medication - okay to zofran as needed for nausea - contact your doctor or return with questions or concerns - Billing Disposition and Condition Condition: STABLE Disposition: Home
[2019-06-01 12:47] LABS: Influenza A Molecular NEGATIVE (Negative); Influenza B Molecular NEGATIVE (Negative)
[2019-06-01] MEDS: Ondansetron ODT TAB* 4 MG SL ONE (13:03)
== END 2019-06-01 13:34 | disposition home or self-care (01) ==
LOC: UCCORT 11:59
DX: R09.81 Nasal congestion (principal); R11.0 Nausea; J02.9 Acute pharyngitis, unspecified; R05 Cough; R50.9 Fever, unspecified; G43.909 Migraine, unspecified, not intractable, without status migrainosus; Z88.2 Allergy status to sulfonamides; Z91.09 Other allergy status, other than to drugs and biological substances
CPT/HCPCS: 99212; A9270-GY; G0463

== ENCOUNTER 2019-07-04 10:07 | Emergency (ER) | payer OTHER ==
[2019-07-04 11:08] VITALS: BP 113/73
--- NOTE | 2019-07-04 11:08 | UC ---
FLU HPI - HPI Summary HPI Summary: 43 yo female presents with URI symptoms. She tells me that over the last 4-5 days she has had a dry cough with sinus pain/pressure/congestion. She has been taking mucinex and tylenol cold with little relief. She does feel a little short of breath at times. Denies fever, chills, sore throat, chest pain, rash, abdominal pain, n/v. - History of Current Complaint Chief Complaint: UCRespiratory Stated Complaint: COUGH/ST/CONGESTION Time Seen by Provider: 07/04/19 11:08 Hx Obtained From: Patient Hx Last Menstrual Period: mirena Onset/Duration: Gradual Onset Severity Currently: Mild Severity Initially: Mild Pain Intensity: 4 Pain Scale Used: 0-10 Numeric - Allergy/Home Medications Allergies/Adverse Reactions: Allergies Allergy/AdvReac Type Severity Reaction Status Date / Time Sulfa (Sulfonamide Allergy Hives Verified 07/04/19 11:05 Antibiotics) seasonal Allergy Eyes Uncoded 07/04/19 11:05 Itchy/Swollen/Red/Watery PMH/Surg Hx/FS Hx/Imm Hx Neurological History: Migraine - Surgical History Surgical History: Yes Surgery Procedure, Year, and Place: right thumb cyst excision 10/06/11. c- section x2. MIRENA--09/2014 - Family History Known Family History: Positive: Cardiac Disease, Hypertension, Non-Contributory - Social History Occupation: Employed Full-time Lives: With Family Alcohol Use: Rare Substance Use Type: None Smoking Status (MU): Never Smoked Tobacco Have You Smoked in the Last Year: No - Immunization History Vaccination Up to Date: Yes Review of Systems All Other Systems Reviewed And Are Negative: No Constitutional: Positive: Negative Skin: Positive: Negative Eyes: Positive: Negative ENT: Positive: Nasal Discharge, Sinus Congestion, Sinus Pain/Tenderness Respiratory: Positive: Shortness Of Breath, Cough Cardiovascular: Positive: Negative Gastrointestinal: Positive: Negative Neurological/Mental Status: Positive: Negative Psychological: Positive: Negative Physical Exam - Summary Physical Exam Summary: GENERAL: NAD. WDWN. No pain distress. SKIN: No rashes, sores, lesions, or open wounds. HEENT: Head: AT/NC Eyes: EOM intact. Conjunctiva clear without inflammation or discharge. Ears: Hearing grossly normal. TMs intact, no bulging, erythema, or edema. Nose: Nasal mucosa mildly swollen and erythematous with yellow/ clear discharge. TTP maxillary and frontal sinus. Positive post nasal drip Throat: Posterior oropharynx without exudates, erythema, or tonsillar enlargement. Uvula midline. NECK: Supple. Mildly TTP shotty anterior cervical LAD CHEST: Moderate wheezing left lung. No accessory muscle use. Breathing comfortably and in no distress. CV: RRR. Pulses intact. NEURO: Alert. PSYCH: Age appropriate behavior. Triage Information Reviewed: Yes Vital Signs: Initial Vital Signs Temp 98.1 F 07/04/19 11:02 Pulse 87 07/04/19 11:02 Resp 16 07/04/19 11:02 BP 113/73 07/04/19 11:02 Pulse Ox 100 07/04/19 11:02 Laboratory Tests 07/04/19 11:15 Influenza A (Rapid) Negative Influenza B (Rapid) Negative Vital Signs Reviewed: Yes Diagnostics - Radiology CXR Radiology Interpretation Completed By: Radiologist Summary of Radiographic Findings: IMPRESSION: NO EVIDENCE FOR ACTIVE CARDIOPULMONARY DISEASE. Flu Course/Dx - Course Course Of Treatment: CXR as above. POC flu negative. Suspect bronchitis - Differential Dx/Diagnosis Provider Diagnosis: Bronchitis Discharge ED - Sign-Out/Discharge Documenting (check all that apply): Patient Departure All imaging exams completed and their final reports reviewed: Yes - Discharge Plan Condition: Stable Disposition: HOME Prescriptions: Albuterol HFA INHALER* [Ventolin HFA Inhaler*] 1 puff INH Q6H PRN #1 mdi PRN Reason: Sob/Wheezing Amoxicillin PO (*) [Amoxicillin 875 MG (*)] 875 mg PO BID #14 tab Patient Education Materials: Acute Bronchitis (ED) Referrals: Patrick Kahn MD [Primary Care Provider] - Additional Instructions: If you develop a fever, shortness of breath, chest pain, new or worsening symptoms - please call your PCP or go to the ED immediately. - Billing Disposition and Condition Condition: STABLE Disposition: Home
[2019-07-04 11:27] LABS: Influenza A Molecular Negative (Negative); Influenza B Molecular Negative (Negative)
== END 2019-07-04 12:02 | disposition home or self-care (01) ==
LOC: UCCORT 10:07
DX: J40 Bronchitis, not specified as acute or chronic (principal); Z88.2 Allergy status to sulfonamides; Z91.09 Other allergy status, other than to drugs and biological substances
CPT/HCPCS: 71046; 99212; G0463

== ENCOUNTER 2024-04-26 05:32 | Observation (INO) ==
[~2024-04-26 05:32] MED LIST: Lidocaine 1% w EPI 1:100,000 MDV 20 ML VIAL ONE; NS 0.45% 1000 ml BAG 1,000 ML IV SCH; Naloxone 0.4 mg VIAL 0.4 mg/ml 1 ml VIAL IV PRN; Ondansetron 4 mg VIAL 2 MG/ML 2 ml VIAL IV PRN; ceFAZolin VIAL VIAL ONE; fentaNYL 100 mcg/2 ml 50 MCG/ML VIAL IV PRN
[2024-04-26] MEDS ORDERED: Chlorhexidine MOUTHWASH 0.12% 15 ML UDC ONE (05:42)
[2024-04-26] MEDS ORDERED: Scopolamine 1 mg/72hr PATCH ONE (06:02)
[2024-04-26] MEDS ORDERED: ceFAZolin 2 GM PREMIX 2 GM/50 ML BAG ONE (06:02)
[2024-04-26] MEDS: Scopolamine 1 mg/72hr PATCH TRANSDERM ONE (06:14)
[2024-04-26 06:36] LABS: Rapid COVID-19 Molecular Undetected (Undetected)
[2024-04-26] MEDS ORDERED: Lidocaine 2% PF 5 ML VIAL ONE (07:08)
[2024-04-26] MEDS ORDERED: Propofol 10 MG/ML 20 ML BTL ONE (07:08)
[2024-04-26] MEDS ORDERED: fentaNYL 100 mcg/2 ml 50 MCG/ML VIAL ONE (07:09)
[2024-04-26] MEDS ORDERED: Midazolam 2 mg/2 ml VIAL 1 mg/ml 2 ml VIAL (2 mg) ONE (07:09)
[2024-04-26] MEDS ORDERED: Rocuronium 50 mg VIAL 10 mg/ml 5 ml VIAL (50 mg) ONE ×3 (07:09→08:57)
[2024-04-26] MEDS ORDERED: Dexamethasone IV 4 MG/ML VIAL 1 ml VIAL ONE ×2 (07:56→10:06)
[2024-04-26] MEDS ORDERED: Ondansetron 4 mg VIAL 2 MG/ML 2 ml VIAL ONE ×2 (07:56→10:06)
[2024-04-26] MEDS ORDERED: Artificial Tear OPHTH.OINT 3.5 GM ONE (07:58)
[2024-04-26] MEDS ORDERED: HYDROmorphone 0.5 MG/0.5 ML SYRINGE ONE (09:38)
[2024-04-26] MEDS ORDERED: Calcium Carb (TUMS) 500 mg CHEW TAB PO PRN (10:17)
[2024-04-26] MEDS ORDERED: Ondansetron 4 mg VIAL 2 MG/ML 2 ml VIAL IV PRN (10:17)
[2024-04-26] MEDS ORDERED: Benzocaine/Menthol LOZ MT PRN (10:17)
[2024-04-26] MEDS ORDERED: Senna TAB 8.6 mg TAB PO PRN (10:17)
[2024-04-26] MEDS ORDERED: Dextran 70/Hypromellose Tears Eye Drops 15 ml BTL (for Artificials Tears) BOTH EYES PRN (10:17)
[2024-04-26] MEDS ORDERED: Magnesium Hydroxide LIQ 30 ML UDC PO PRN (10:17)
[2024-04-26] MEDS ORDERED: Phenol 1.4% Throat Spray BTL MT PRN (10:17)
[2024-04-26] MEDS: Lactated Ringers 1000 ml BAG 1,000 ML IV SCH ×2 (12:30→19:06)
[2024-04-26] MEDS: Acetaminophen IV 1 GM/100ML 1,000 MG/100 ML BAG IV ONE (19:05)
[2024-04-26] MEDS: Buffered Lidocaine 1% SYRIN 1 ml INTRADERM ONE (19:06)
[2024-04-26] MEDS: Morphine 2 MG/ML SYRINGE IV PRN (22:56)
[2024-04-27 06:24] VITALS: BP 104/70
== END 2024-04-27 13:20 | disposition home or self-care (01) ==
LOC: OR 05:32 → SSU 05:32
PROVIDERS: ADMIT Neurological Surgery; ATTEND Neurological Surgery